=== PATIENT | female | born 1995 | race Caucasian/White ===

== ENCOUNTER 2020-07-10 06:56 | Inpatient (IN) | payer MEDICAID ==
[2020-07-10] MEDS ORDERED: Misoprostol 50 MCG (1/2 of 100 MCG) Tab VAG ONE ×2 (07:07→12:00)
[2020-07-10] MEDS ORDERED: Sodium Chloride 0.9% 10 ML Syringe FLUSH PRN (07:45)
[2020-07-10] MEDS ORDERED: Misoprostol 50 MCG (1/2 of 100 MCG) Tab ONE (07:57)
--- NOTE | 2020-07-10 08:05 | PCM.LDHP ---
L&D History of Present Illness - General Date of Service: 07/10/20 (induction for change in status, concern for ines mcclelland) Admit Problem/Dx: Patient Status Order with Admit Dx/Problem 07/10/20 07:45 Patient Status [ADT] Routine Admission Diagnosis/Problem Admission Diagnosis/Problem Source of Information: Patient History Limitations: Reports: No Limitations - History of Present Illness Introduction:: This 25 year old who is 40 2/7 weeks presents for induction of labor at term for concern of seizures. Mother described at yesterday's visit shiver like activity of the [place] in the evening for the past 5-6 days. I reviewed this case with DRY HOUSE WORKER and he recommened an induction for change in status Labs: HIV neg ABO O pos GBS neg Rubella immune - Related Data Allergies/Adverse Reactions: Allergies Allergy/AdvReac Type Severity Reaction Status Date / Time No Known Allergies Allergy Verified 07/10/20 07:44 Past Medical History DRY HOUSE WORKER History: Reports: : 2 Para: 1 LMP (Approximate): (GIAN 07/08/20) H&P Review of Systems - Review of Systems: Review Of Systems: See Below General: Reports: No Symptoms HEENT: Reports: No Symptoms Pulmonary: Reports: No Symptoms Cardiovascular: Reports: No Symptoms Gastrointestinal: Reports: No Symptoms Genitourinary: Reports: No Symptoms Musculoskeletal: Reports: No Symptoms Skin: Reports: No Symptoms Psychiatric: Reports: No Symptoms Neurological: Reports: No Symptoms Hematologic/Lymphatic: Reports: No Symptoms Immunologic: Reports: No Symptoms L&D Exam - Exam Exam: See Below - Vital Signs Vital Signs: Last Vital Signs Temp 95.7 F L 07/10/20 07:16 Pulse 47 L 07/10/20 07:16 Resp 14 07/10/20 07:16 BP 113/65 07/10/20 07:16 Pulse Ox 97 07/10/20 07:16 - OB Specific Contraction Intensity: Mild Movement: Active Heart Tones: Present (140) Heart Rate (FHR) Variability: Moderate (6-25 bmp) Presentation: Vertex Estimated Weight: 6-7 pounds - Camacho Score Camacho Score Cervix Position: Posterior Camacho Score Consistency: Soft Camacho Score Effacement: >80% Camacho Score Dilation: 1-2 cm Camacho Score 's Station: -1 ,0 Camacho Score Total: 8 - Exam General: Alert, Oriented HEENT: PERRLA, Conjunctiva Clear Neck: Supple Lungs: Clear to Auscultation, Normal Respiratory Effort Cardiovascular: Regular Rate, Regular Rhythm GI/Abdominal Exam: Normal Bowel Sounds, Soft Genitourinary: Normal external exam, Cervical dilitation, Enlarged uterus Back Exam: Normal Inspection, Full Range of Motion Extremities: No Pedal Edema, Normal Capillary Refill Skin: Warm, Dry, Intact Neurological: Cranial Nerves Intact, Reflexes Equal Bilateral Psychiatric: Alert, Normal Affect, Normal Mood - Patient Data Lab Results Last 24 hrs: Laboratory Results - last 24 hr 07/10/20 07/10/20 07/10/20 Range/Units 07:08 07:08 07:20 WBC 9.0 (4.5-11.0) K/uL RBC 3.91 (3.30-5.50) M/uL Hgb 12.3 (12.0-15.0) g/dL Hct 38.5 (36.0-48.0) % MCV 99 H (80-98) fL MCH 32 H (27-31) pg MCHC 32 (32-36) % Plt Count 235 (150-400) K/uL Urine Color Yellow (YELLOW) Urine Appearance Clear (CLEAR) Urine pH 7.0 (5.0-8.0) Ur Specific [place] 1.020 (1.008-1.030) Urine Protein Negative (NEGATIVE) mg/dL Urine Glucose (UA) Negative (NEGATIVE) mg/dL Urine Ketones Negative (NEGATIVE) mg/dL Urine Occult Blood Negative (NEGATIVE) Urine Nitrite Negative (NEGATIVE) Urine Bilirubin Negative (NEGATIVE) Urine Urobilinogen 0.2 (0.2-1.0) EU/dL Ur Leukocyte Esterase Trace H (NEGATIVE) Urine Opiates Screen Negative (NEGATIVE) Ur Oxycodone Screen Negative (NEGATIVE) Urine Methadone Screen Negative (NEGATIVE) Ur Propoxyphene Screen Negative (NEGATIVE) Ur Barbiturates Screen Negative (NEGATIVE) Ur Tricyclics Screen Negative (NEGATIVE) Ur Phencyclidine Scrn Negative (NEGATIVE) Ur Amphetamine Screen Negative (NEGATIVE) U Methamphetamines Scrn Negative (NEGATIVE) Urine MDMA Screen Negative (NEGATIVE) U Benzodiazepines Scrn Negative (NEGATIVE) U Cocaine Metab Screen Negative (NEGATIVE) U Marijuana (THC) Screen Negative (NEGATIVE) Result Diagrams: 07/10/20 07:20 - Problem List (1) Encounter for induction of labor SNOMED Code(s): 023628378 ICD Code: Z34.90 - ENCNTR FOR SUPRVSN OF NORMAL , UNSP, UNSP TRIMESTER Status: Acute Current Visit: Yes (2) Intrauterine SNOMED Code(s): 06981430 ICD Code: Z34.90 - ENCNTR FOR SUPRVSN OF NORMAL , UNSP, UNSP TRIMESTER Status: Acute Current Visit: Yes Problem List Initiated/Reviewed/Updated: Yes Orders Last 24hrs: Active Orders 24 hr Category Date Time Status Patient Status [ADT] Routine ADT 07/10/20 07:45 Ordered Antiembolic Devices [RC] .Routine Care 07/10/20 07:48 Ordered Communication Order [RC] ASDIRECTED Care 07/10/20 07:45 Ordered Communication Order [RC] Per Unit Routine Care 07/10/20 07:59 Ordered Communication Order [RC] Per Unit Routine Care 07/10/20 07:59 Ordered Communication Order [RC] Per Unit Routine Care 07/10/20 07:59 Ordered Heart Tones [RC] PER UNIT ROUTINE Care 07/10/20 07:45 Ordered Non Stress Test [RC] Click to Edit Care 07/10/20 07:45 Ordered Nitrous Oxide Delivery [RC] ASDIRECTED Care 07/10/20 07:59 Ordered Notify Provider Vital Signs [RC] PRN Care 07/10/20 07:45 Ordered Notify Provider [RC] PRN Care 07/10/20 07:45 Ordered Oxygen Therapy [RC] ASDIRECTED Care 07/10/20 07:59 Ordered Pulse Oximetry [RC] ASDIRECTED Care 07/10/20 07:59 Ordered VTE/DVT Education [RC] Click to Edit Care 07/10/20 07:48 Ordered Verify Patient Consent Obtain [RC] ASDIRECTED Care 07/10/20 07:59 Ordered Vital Signs [RC] PER UNIT ROUTINE Care 07/10/20 07:45 Ordered Vital Signs [RC] PER UNIT ROUTINE Care 07/10/20 07:59 Ordered Regular Diet [DIET] Diet 07/10/20 Dinner Ordered BPP w NST [US] Routine Exams 07/10/20 07:08 Ordered CORONAVIRUS COVID-19, MAURILIO Stat Lab 07/10/20 07:08 Ordered Sodium Chloride 0.9% [Saline Flush] Med 07/10/20 07:45 Ordered 10 ml FLUSH ASDIRECTED PRN DVT/VTE Prophylaxis Reflex [OM.PC] Routine Oth 07/10/20 07:45 Ordered Saline Lock Insert [OM.PC] Routine Oth 07/10/20 07:45 Ordered Resuscitation Status Routine Resus Stat 07/10/20 07:45 Ordered Medication Orders Sodium Chloride (Saline Flush) 10 ml FLUSH ASDIRECTED PRN PRN Reason: Keep Vein Open Assessment/Plan Comment:: 07/10/20 25 year old 40 2/7 weeks with concern for wellbeing, Mother has been describing shivers in the evening for the past 5-6 nights Plan induction BPP 8/8, reactive NST this morning hgb 12.3, PLT 235 Miso 50 mcg vaginal placed at 0800 Plan for vaginal delivery She would like Nitrous for pain management if Covid negative
--- NOTE | 2020-07-10 10:03 | US ---
BPP w NST INDICATION: induction. quivering/? seizures COMPARISON: None FINDINGS: Single live IUP in: Cephalic position. heart rate: 161 BPM. Biophysical profile score: 8/8. LATOYA: 12.3 cm. IMPRESSION: Normal biophysical profile score of 8/8.
--- NOTE | 2020-07-10 12:17 | PCM.PNLD ---
Labor Progress Note - VS & Meds Vital Signs: Last Vital Signs Temp 95.7 F L 07/10/20 07:16 Pulse 62 07/10/20 07:58 Resp 14 07/10/20 08:35 BP 102/69 07/10/20 08:45 Pulse Ox 97 07/10/20 07:16 Active Medications: Current Medications Sodium Chloride (Saline Flush) 10 ml FLUSH ASDIRECTED PRN PRN Reason: Keep Vein Open Discontinued Medications Oxytocin/Sodium Chloride (Pitocin In Ns 20 Units/1,000 Ml) 20 unit in 1,000 mls @ 500 mls/hr IV ASDIRECTED ONE; Protocol Stop: 07/10/20 11:57 Misoprostol (Cytotec) 50 mcg VAG ONETIME ONE Stop: 07/10/20 07:08 Last Admin: 07/10/20 07:53 Dose: 50 mcg Documented by: Misoprostol (Cytotec) Confirm Administered Dose 50 mcg .ROUTE .STK-MED ONE Stop: 07/10/20 07:58 Last Admin: 07/10/20 08:49 Dose: Not Given Documented by: Misoprostol (Cytotec) 50 mcg VAG ONETIME ONE Stop: 07/10/20 12:01 - Uterine Contractions Uterine Monitoring Mode: None in Use Contraction Frequency (min): 1.5-2.5 Contraction Duration (sec): 50-60 Contraction Intensity: Mild Uterine Resting Tone: Soft - Monitoring Monitor Mode: Doppler/Auscultation Heart Rate (FHR) Baseline: 140 Heart Rate (FHR) Variability: Moderate (6-25 bmp) Accelerations: Present, 15x15 Decelerations: Variable Strip Review: Category II - Vaginal Exam Dilation (cm): 3-4 Effacement (Percent): 80 Station: 1 Cervical Position: Anterior Sterile Vaginal Exam Performed By: Kamille Martínez Vaginal Exam Comment: nice change since this morning - Labor Progress (Free Text) Labor Progress: plan for vaginal delivery nitrous for pain management
[2020-07-10] MEDS ORDERED: fentaNYL 100 MCG/2 ML SDV ONE (14:49)
[2020-07-10] MEDS ORDERED: fentaNYL 100 MCG/2 ML SDV IVPUSH ONE (15:00)
[2020-07-10] MEDS ORDERED: Lidocaine 1% 50 ML MDV ONE (16:15)
[2020-07-10] MEDS ORDERED: Lidocaine 1% 50 ML MDV INJECT ONE (16:35)
[2020-07-10] MEDS ORDERED: Lanolin 100% Cream 40 GM Tube TOP ONE (16:37)
[2020-07-10] MEDS ORDERED: Benzocaine 20% Top Spray 56 GM Bottle TOP ONE (16:37)
[2020-07-10] MEDS ORDERED: Acetaminophen 325 MG Tab, 50 Tab Bulk Bottle PO PRN (16:37)
[2020-07-10] MEDS ORDERED: Witch Hazel Medicated Pads 100/Jar TOP ONE (16:37)
[2020-07-10] MEDS ORDERED: Ibuprofen 200 MG Tab, 24 Tab Bulk Bottle PO PRN (16:37)
[2020-07-10] MEDS ORDERED: Hydrocortisone 2.5% Crm 30 GM Tube TOP PRN (16:37)
--- NOTE | 2020-07-10 16:50 | PCM.DEL ---
L & D Note - General Info Date of Service: 07/10/20 Mother's Due Date: 07/08/20 - Delivery Note Labor: Spontaneous Cervical Ripening Method: Misoprostil Delivery Outcome: Livebirth Delivery Method: Spontaneous Vaginal Delivery-Single Infant Delivery Mode: Spontaneous Presentation: Vertex Nuchal Cord: None Anesthesia Type: Nitrous Oxide Anesthetic: Lidocaine (Xylocaine) 1% Plain Local Anesthetic Volume: 3cc Amniotic Fluid Description: Clear Episiotomy Type: None Laceration: 1st Degree, Perineal Suture type: Vicryl Suture size: 3-0 Placenta: Intact, Spontaneous Cord: 3 Vessels Estimated Blood Loss: 200 Resuscitation Needed: No [place]: Bulb Syringe, Stimulated, Warmed, [place]ks Used Provider: Kamille Martínez Score 1 min: 8 (color) Score 5 min: 9 (color) Second Stage Interventions: Reports: Pushing Effectively, Pushing, Pulls Own Legs Back Delivery Comments (Free Text/Narrative):: 07/10/20 This 25 year old G2 now P2 who is 40 2/7 weeks gestation delivered a female via at 1610 in EZIO position. The was delivered onto her chest and was screaming. Delayed cord clamping and active management of the third stage were used. Baby was dried and stimulated. Apgars of 8 & 9 all for color. Three vessel cord. The placenta was expressed intact spontaneously. Mother had a tiny perineal tear that was repaired with two 3-0 Vicryl stitches. 1% lidocaine was used as a local agent. No other lacerations were found. EBL 200cc Mother and baby to post instable condition weight7-6pounds First stage 2197-4601 Second stage 4526-3211 Third stage 5653-5296 Beautiful delivery Induction Criteria - Camacho Score Camacho Score Dilation: 1-2 cm Camacho Score Effacement: >80% Camacho Score 's Station: -1 ,0 Camacho Score Consistency: Soft Camacho Score Cervix Position: Posterior Camacho Score Total: 8 Camacho Score Presenting Part: Reports: Cephalic - Induction Gestational Age >/= 39 wks: Yes Estimated Pelvis: Reports: Adequate Reassuring Monitoring Strip: Yes Absence of Tachy Systole: Yes - General Info Date of Service: 07/10/20 Admission Dx/Problem (Free Text): Patient Status Order with Admit Dx/Problem 07/10/20 07:45 Patient Status [ADT] Routine Admission Diagnosis/Problem Admission Diagnosis/Problem Functional Status: Reports: Pain Controlled - Review of Systems General: Reports: No Symptoms HEENT: Reports: No Symptoms Pulmonary: Reports: No Symptoms Cardiovascular: Reports: No Symptoms Gastrointestinal: Reports: No Symptoms Genitourinary: Reports: No Symptoms Musculoskeletal: Reports: No Symptoms Skin: Reports: No Symptoms Neurological: Reports: No Symptoms Psychiatric: Reports: No Symptoms - Patient Data Vitals - Most Recent: Last Vital Signs Temp 97.4 F 07/10/20 13:05 Pulse 68 07/10/20 13:05 Resp 16 07/10/20 13:05 BP 105/58 L 07/10/20 13:05 Pulse Ox 97 07/10/20 07:16 Weight - Most Recent: 160 lb 15.987 oz Lab Results Last 24 Hours: Laboratory Results - last 24 hr 07/10/20 07/10/20 07/10/20 Range/Units 07:08 07:08 07:20 WBC 9.0 (4.5-11.0) K/uL RBC 3.91 (3.30-5.50) M/uL Hgb 12.3 (12.0-15.0) g/dL Hct 38.5 (36.0-48.0) % MCV 99 H (80-98) fL MCH 32 H (27-31) pg MCHC 32 (32-36) % Plt Count 235 (150-400) K/uL Urine Color Yellow (YELLOW) Urine Appearance Clear (CLEAR) Urine pH 7.0 (5.0-8.0) Ur Specific [place] 1.020 (1.008-1.030) Urine Protein Negative (NEGATIVE) mg/dL Urine Glucose (UA) Negative (NEGATIVE) mg/dL Urine Ketones Negative (NEGATIVE) mg/dL Urine Occult Blood Negative (NEGATIVE) Urine Nitrite Negative (NEGATIVE) Urine Bilirubin Negative (NEGATIVE) Urine Urobilinogen 0.2 (0.2-1.0) EU/dL Ur Leukocyte Esterase Trace H (NEGATIVE) Urine Opiates Screen Negative (NEGATIVE) Ur Oxycodone Screen Negative (NEGATIVE) Urine Methadone Screen Negative (NEGATIVE) Ur Propoxyphene Screen Negative (NEGATIVE) Ur Barbiturates Screen Negative (NEGATIVE) Ur Tricyclics Screen Negative (NEGATIVE) Ur Phencyclidine Scrn Negative (NEGATIVE) Ur Amphetamine Screen Negative (NEGATIVE) U Methamphetamines Scrn Negative (NEGATIVE) Urine MDMA Screen Negative (NEGATIVE) U Benzodiazepines Scrn Negative (NEGATIVE) U Cocaine Metab Screen Negative (NEGATIVE) U Marijuana (THC) Screen Negative (NEGATIVE) SARS CoV-2 RNA Rapid MAURILIO 07/10/20 Range/Units 08:09 WBC (4.5-11.0) K/uL RBC (3.30-5.50) M/uL Hgb (12.0-15.0) g/dL Hct (36.0-48.0) % MCV (80-98) fL MCH (27-31) pg MCHC (32-36) % Plt Count (150-400) K/uL Urine Color (YELLOW) Urine Appearance (CLEAR) Urine pH (5.0-8.0) Ur Specific [place] (1.008-1.030) Urine Protein (NEGATIVE) mg/dL Urine Glucose (UA) (NEGATIVE) mg/dL Urine Ketones (NEGATIVE) mg/dL Urine Occult Blood (NEGATIVE) Urine Nitrite (NEGATIVE) Urine Bilirubin (NEGATIVE) Urine Urobilinogen (0.2-1.0) EU/dL Ur Leukocyte Esterase (NEGATIVE) Urine Opiates Screen (NEGATIVE) Ur Oxycodone Screen (NEGATIVE) Urine Methadone Screen (NEGATIVE) Ur Propoxyphene Screen (NEGATIVE) Ur Barbiturates Screen (NEGATIVE) Ur Tricyclics Screen (NEGATIVE) Ur Phencyclidine Scrn (NEGATIVE) Ur Amphetamine Screen (NEGATIVE) U Methamphetamines Scrn (NEGATIVE) Urine MDMA Screen (NEGATIVE) U Benzodiazepines Scrn (NEGATIVE) U Cocaine Metab Screen (NEGATIVE) U Marijuana (THC) Screen (NEGATIVE) SARS CoV-2 RNA Rapid MAURILIO Negative Med Orders - Current: Current Medications Acetaminophen (Tylenol Bulk Bottle) 0 mg PO Q4H PRN PRN Reason: Pain Benzocaine (Cjpi-I-Ukgiioj 20% [place]) 0 gm TOP Q4H ONE Stop: 07/10/20 16:38 Emollient Ointment (Lansinoh Hpa) 1 gm TOP ASDIRECTED ONE Stop: 07/10/20 16:38 Hydrocortisone (Proctozone-Hc 2.5% Crm) 1 gm TOP ASDIRECTED PRN PRN Reason: Itching Ibuprofen (Motrin Bulk Bottle) 600 mg PO Q6H PRN PRN Reason: Pain Lidocaine HCl (Xylocaine 1%) 5 ml INJECT ONETIME ONE Stop: 07/10/20 16:36 Sodium Chloride (Saline Flush) 10 ml FLUSH ASDIRECTED PRN PRN Reason: Keep Vein Open [place] (Tucks) 1 pad TOP ASDIRECTED ONE Stop: 07/10/20 16:38 Discontinued Medications Fentanyl (Sublimaze) 50 mcg IVPUSH ONETIME ONE Stop: 07/10/20 15:01 Last Admin: 07/10/20 14:58 Dose: 50 mcg Documented by: Fentanyl (Sublimaze) Confirm Administered Dose 100 mcg .ROUTE .STK-MED ONE Stop: 07/10/20 14:50 Last Admin: 07/10/20 14:58 Dose: Not Given Documented by: Oxytocin/Sodium Chloride (Pitocin In Ns 20 Units/1,000 Ml) 20 unit in 1,000 mls @ 500 mls/hr IV ASDIRECTED ONE; Protocol Stop: 07/10/20 11:57 Last Admin: 07/10/20 16:34 Dose: 500 mls/hr, 500 mls/hr Documented by: Lidocaine HCl (Xylocaine 1%) Confirm Administered Dose 50 ml .ROUTE .STK-MED ONE Stop: 07/10/20 16:16 Last Admin: 07/10/20 16:34 Dose: 50 ml Documented by: Misoprostol (Cytotec) 50 mcg VAG ONETIME ONE Stop: 07/10/20 07:08 Last Admin: 07/10/20 07:53 Dose: 50 mcg Documented by: Misoprostol (Cytotec) Confirm Administered Dose 50 mcg .ROUTE .STK-MED ONE Stop: 07/10/20 07:58 Last Admin: 07/10/20 08:49 Dose: Not Given Documented by: Misoprostol (Cytotec) 50 mcg VAG ONETIME ONE Stop: 07/10/20 12:01 Last Admin: 07/10/20 12:46 Dose: Not Given Documented by: - Exam General: Alert, Oriented HEENT: Pupils Equal, Pupils Reactive Neck: Supple Lungs: Normal Respiratory Effort Cardiovascular: Regular Rate, Regular Rhythm GI/Abdominal Exam: Normal Bowel Sounds, Soft (Female) Exam: Cervical Dilatation, Enlarged Uterus, Vaginal Bleeding Back Exam: Normal Inspection Extremities: No Pedal Edema, Normal Capillary Refill Skin: Warm, Dry Neurological: No New Focal Deficit Psy/Mental Status: Alert, Normal Affect, Normal Mood - Problem List & Annotations (1) Encounter for induction of labor SNOMED Code(s): 193258390 Code(s): Z34.90 - ENCNTR FOR SUPRVSN OF NORMAL , UNSP, UNSP TRIMESTER Status: Acute Current Visit: Yes (2) Intrauterine SNOMED Code(s): 96127695 Code(s): Z34.90 - ENCNTR FOR SUPRVSN OF NORMAL , UNSP, UNSP TRIMESTER Status: Acute Current Visit: Yes (3) Vaginal delivery SNOMED Code(s): 327798623 Code(s): O80 - ENCOUNTER FOR FULL-TERM UNCOMPLICATED DELIVERY Status: Acute Current Visit: Yes (4) (infant) SNOMED Code(s): 824619800 Code(s): Z78.9 - OTHER SPECIFIED HEALTH STATUS Status: Acute Current Visit: Yes (5) Active labor SNOMED Code(s): 197913899 Code(s): KXY1049 - Status: Acute Current Visit: Yes - Problem List Review Problem List Initiated/Reviewed/Updated: Yes - My Orders Last 24 Hours: My Active Orders 07/10/20 07:45 Notify Provider Vital Signs [RC] PRN Notify Provider [RC] PRN Sodium Chloride 0.9% [Saline Flush] 10 ml FLUSH ASDIRECTED PRN DVT/VTE Prophylaxis Reflex [OM.PC] Routine Saline Lock Insert [OM.PC] Routine Resuscitation Status Routine 07/10/20 07:48 Antiembolic Devices [RC] .Routine VTE/DVT Education [RC] Click to Edit 07/10/20 07:59 Nitrous Oxide Delivery [RC] ASDIRECTED Oxygen Therapy [RC] ASDIRECTED Pulse Oximetry [RC] ASDIRECTED Vital Signs [RC] PER UNIT ROUTINE 07/10/20 16:35 Lidocaine 1% [Xylocaine 1%] 5 ml INJECT ONETIME ONE 07/10/20 16:37 May Shower [RC] ASDIRECTED Up ad Meme [RC] ASDIRECTED Acetaminophen [Tylenol Bulk Bottle] See Dose Instructions PO Q4H PRN Benzocaine [Rbev-I-Hkuziuv 20% [place]] See Dose Instructions TOP Q4H ONE Hydrocortisone [Proctozone-HC 2.5% Crm] 1 gm TOP ASDIRECTED PRN Ibuprofen [Motrin Bulk Bottle] 600 mg PO Q6H PRN Lanolin [Lansinoh HPA] 1 gm TOP ASDIRECTED ONE witch Reg [Tucks] 1 pad TOP ASDIRECTED ONE Assess Lochia [WOMSER] Per Unit Routine Assess Uterine Involution [WOMSER] Per Unit Routine 07/10/20 16:38 Patient Status [ADT] Routine Vital Signs [RC] PFP 07/10/20 16:39 Ice Therapy [OM.PC] Per Unit Routine Perineal Care [OM.PC] Per Unit Routine Peripheral IV Discontinue [OM.PC] Routine Sitz Bath [OM.PC] Per Unit Routine 07/10/20 Dinner Regular Diet [DIET] 07/11/20 05:11 CBC WITH AUTO DIFF [HEME] AM - Assessment Assessment:: 07/10/20 25 year old induction with and no complications Female , - Plan Plan:: 07/10/20 25 year old 40 2/7 weeks with concern for wellbeing, Mother has been describing shivers in the evening for the past 5-6 nights Plan induction BPP 8/8, reactive NST this morning hgb 12.3, PLT 235 Miso 50 mcg vaginal placed at 0800 Plan for vaginal delivery She would like Nitrous for pain management if Covid negative routine cares 24-48 hour stay support
--- NOTE | 2020-07-11 09:49 | PCM.PNPP ---
- General Info Date of Service: 07/11/20 Functional Status: Reports: Pain Controlled - Review of Systems General: Reports: No Symptoms HEENT: Reports: No Symptoms Pulmonary: Reports: No Symptoms Cardiovascular: Reports: No Symptoms Gastrointestinal: Reports: No Symptoms Genitourinary: Reports: No Symptoms Musculoskeletal: Reports: No Symptoms Skin: Reports: No Symptoms Neurological: Reports: No Symptoms Psychiatric: Reports: No Symptoms - General Info Date of Service: 07/11/20 - Patient Data Vital Signs - Most Recent: Last Vital Signs Temp 35.8 C L 07/11/20 09:12 Pulse 81 07/11/20 09:12 Resp 16 07/11/20 04:03 BP 113/70 07/11/20 09:12 Pulse Ox 97 07/11/20 09:12 Weight - Most Recent: 73.028 kg I&O - Last 24 Hours: Intake & Output 07/10/20 07/11/20 07/11/20 22:59 06:59 14:59 Intake Total 1000 Balance 1000 Lab Results - Last 24 Hours: Laboratory Results - last 24 hr 07/11/20 Range/Units 05:11 WBC 13.5 H (4.5-11.0) K/uL RBC 3.53 (3.30-5.50) M/uL Hgb 11.2 L (12.0-15.0) g/dL Hct 34.6 L (36.0-48.0) % MCV 98 (80-98) fL MCH 32 H (27-31) pg MCHC 32 (32-36) % Plt Count 199 (150-400) K/uL Neut % (Auto) 75 H (36-66) % Lymph % (Auto) 15 L (24-44) % [place] % (Auto) 9 H (2-6) % Eos % (Auto) 1 L (2-4) % Baso % (Auto) 0 (0-1) % Med Orders - Current: Current Medications Acetaminophen (Tylenol Bulk Bottle) 0 mg PO Q4H PRN PRN Reason: Pain Last Admin: 07/10/20 17:31 Dose: 650 mg Documented by: Hydrocortisone (Proctozone-Hc 2.5% Crm) 0 gm TOP ASDIRECTED PRN PRN Reason: Itching Ibuprofen (Motrin Bulk Bottle) 600 mg PO Q6H PRN PRN Reason: Pain Last Admin: 07/10/20 17:29 Dose: 600 mg Documented by: Sodium Chloride (Saline Flush) 10 ml FLUSH ASDIRECTED PRN PRN Reason: Keep Vein Open Discontinued Medications Benzocaine (Biyl-A-Wjxiezl 20% [place]) 0 gm TOP Q4H ONE Stop: 07/10/20 16:38 Last Admin: 07/10/20 17:31 Dose: 1 applic Documented by: Emollient Ointment (Lansinoh Hpa) 0 gm TOP ASDIRECTED ONE Stop: 07/10/20 16:38 Last Admin: 07/10/20 17:30 Dose: 1 applic Documented by: Fentanyl (Sublimaze) 50 mcg IVPUSH ONETIME ONE Stop: 07/10/20 15:01 Last Admin: 07/10/20 14:58 Dose: 50 mcg Documented by: Fentanyl (Sublimaze) Confirm Administered Dose 100 mcg .ROUTE .STK-MED ONE Stop: 07/10/20 14:50 Last Admin: 07/10/20 14:58 Dose: Not Given Documented by: Oxytocin/Sodium Chloride (Pitocin In Ns 20 Units/1,000 Ml) 20 unit in 1,000 mls @ 500 mls/hr IV ASDIRECTED ONE; Protocol Stop: 07/10/20 11:57 Last Admin: 07/10/20 16:34 Dose: 500 mls/hr, 500 mls/hr Documented by: Lidocaine HCl (Xylocaine 1%) Confirm Administered Dose 50 ml .ROUTE .STK-MED ONE Stop: 07/10/20 16:16 Last Admin: 07/10/20 16:34 Dose: 50 ml Documented by: Lidocaine HCl (Xylocaine 1%) 5 ml INJECT ONETIME ONE Stop: 07/10/20 16:36 Last Admin: 07/10/20 17:15 Dose: Not Given Documented by: Misoprostol (Cytotec) 50 mcg VAG ONETIME ONE Stop: 07/10/20 07:08 Last Admin: 07/10/20 07:53 Dose: 50 mcg Documented by: Misoprostol (Cytotec) Confirm Administered Dose 50 mcg .ROUTE .STK-MED ONE Stop: 07/10/20 07:58 Last Admin: 07/10/20 08:49 Dose: Not Given Documented by: Misoprostol (Cytotec) 50 mcg VAG ONETIME ONE Stop: 07/10/20 12:01 Last Admin: 07/10/20 12:46 Dose: Not Given Documented by: [place] Burtonlesia) 1 pad TOP ASDIRECTED ONE Stop: 07/10/20 16:38 Last Admin: 07/10/20 17:30 Dose: 1 applic Documented by: - Interaction Disposition, : in Room with Family Interaction: Holding Feeding: Breastfed Infant; Nursed Well Support Person: - Recovery Exam Fundal Tone: Firm Fundal Level: 1 Fingerbreadths Below Umbilicus Fundal Placement: Midline Lochia Amount: Moderate Lochia Color: Rubra/Red Perineum Description: Edematous Other Perinuem Description: stitching Episiotomy/Laceration: Approximated Bladder Status: Voiding Urinary Elimination: Voided - Exam General: Alert, Oriented HEENT: Pupils Equal, Pupils Reactive, Mucous Membr. Moist/[place] Neck: Supple Lungs: Clear to Auscultation, Normal Respiratory Effort Cardiovascular: Regular Rate, Regular Rhythm GI/Abdominal Exam: Normal Bowel Sounds, Soft, Non-Tender, No Organomegaly, No Distention, No Mass, Pelvis Stable Extremities: Normal Inspection, Normal Range of Motion, Non-Tender, No Pedal Edema, Normal Capillary Refill Skin: Warm, Dry, Intact Neurological: No New Focal Deficit Psy/Mental Status: Alert, Normal Affect, Normal Mood - Problem List & Annotations (1) Active labor SNOMED Code(s): 254183206 Code(s): XES2444 - Status: Acute Current Visit: Yes (2) () SNOMED Code(s): 589647054 Code(s): Z78.9 - OTHER SPECIFIED HEALTH STATUS Status: Acute Current Vis it: Yes (3) Encounter for induction of labor SNOMED Code(s): 484182382 Code(s): Z34.90 - ENCNTR FOR SUPRVSN OF NORMAL , UNSP, UNSP TRIMESTER Status: Acute Current Visit: Yes (4) Intrauterine SNOMED Code(s): 03524186 Code(s): Z34.90 - ENCNTR FOR SUPRVSN OF NORMAL , UNSP, UNSP TRIMESTER Status: Acute Current Visit: Yes (5) Vaginal delivery SNOMED Code(s): 442093365 Code(s): O80 - ENCOUNTER FOR FULL-TERM UNCOMPLICATED DELIVERY Status: Acute Current Visit: Yes (6) Vaginal laceration SNOMED Code(s): 298061298 Code(s): S31.41XA - LACERATION W/O FOREIGN BODY OF VAGINA AND VULVA, INIT ENCNTR Status: Acute Current Visit: Yes Qualifiers: Perineal laceration degree: laceration of unspecified degree - Problem List Review Problem List Initiated/Reviewed/Updated: Yes - Assessment Assessment:: 07/10/20 25 year old induction with and no complications Female , 07/11/20 PP day 1, no complications Pain controlled AVSS Bleeding light and FF going well - Plan Plan:: 07/10/20 25 year old 40 2/7 weeks with concern for wellbeing, Mother has been describing shivers in the evening for the past 5-6 nights Plan induction BPP 8/8, reactive NST this morning hgb 12.3, PLT 235 Miso 50 mcg vaginal placed at 0800 Plan for vaginal delivery She would like Nitrous for pain management if Covid negative routine cares 24-48 hour stay support 07/11/20 Routine pp cares and support Discharge home today after 24 hours if stable 6 week pp check
[2020-07-11] MEDS ORDERED: Docusate Sodium 100 MG Cap PO PRN (12:28)
== END 2020-07-11 18:19 | disposition home or self-care (01) | DRG 807 ==
LOC: JP.OB 06:56 → OBSVTOIN 16:10 → JP.MS 22:36
PROVIDERS: ADMIT Nurse Practitioner Family; ATTEND Nurse Practitioner Family
PROC: 10E0XZZ Delivery of Products of Conception, External Approach (ICD-10-PCS; principal; 2020-07-10)
PROC: 0HQ9XZZ Repair Perineum Skin, External Approach (ICD-10-PCS; 2020-07-10)
DX: O70.0 First degree perineal laceration during delivery (principal); Z37.0 Single live birth; Z3A.40 40 weeks gestation of pregnancy; Z20.828 Contact with and (suspected) exposure to other viral communicable diseases
CPT/HCPCS: 36415; 59409; 76818; 76818-26; 80305-QW; 81003; 85025; 85027; A9270-GY; J2001; J2590; J3010; U0002

== ENCOUNTER 2022-03-03 07:22 | Inpatient (IN) | payer MEDICAID ==
[2022-03-03] MEDS ORDERED: Ondansetron 4 MG/2 ML SDV IV PRN (08:13)
[2022-03-03] MEDS ORDERED: Sodium Chloride 0.9% 10 ML Syringe FLUSH PRN (08:13)
[2022-03-03] MEDS ORDERED: fentaNYL 100 MCG/2 ML SDV IVPUSH PRN (08:13)
[2022-03-03] MEDS ORDERED: Lactated Ringers 1,000 ML IV SCH (08:45)
[2022-03-03 09:16] LABS: CORONAVIRUS COVID-19 NAA NEGATIVE (NEGATIVE)
[2022-03-03] MEDS ORDERED: Ketorolac 30 MG/ML SDV IM ONE (14:20)
[2022-03-03] MEDS ORDERED: Ketorolac 30 MG/ML SDV ONE (14:21)
[2022-03-03] MEDS ORDERED: Lanolin 100% Cream 40 GM Tube TOP PRN (17:13)
[2022-03-03] MEDS ORDERED: Acetaminophen 325 MG Tab, 50 Tab Bulk Bottle PO PRN (17:17)
[2022-03-03] MEDS ORDERED: Ibuprofen 200 MG Tab, 24 Tab Bulk Bottle PO PRN (17:19)
[2022-03-03] MEDS: Witch Hazel Medicated Pads 100/Jar TOP PRN (17:30)
[2022-03-04] MEDS: Witch Hazel Medicated Pads 100/Jar TOP PRN (17:35)
== END 2022-03-04 17:45 | disposition home or self-care (01) | DRG 807 ==
LOC: JP.OB 07:22 → OBSVTOIN 14:15 → JP.MS 16:14
PROVIDERS: ADMIT Obstetrics & Gynecology; ATTEND Obstetrics & Gynecology
PROC: 4A1HXCZ Monitoring of Products of Conception, Cardiac Rate, External Approach (ICD-10-PCS; principal; 2022-03-03)
PROC: 10E0XZZ Delivery of Products of Conception, External Approach (ICD-10-PCS; 2022-03-03)
PROC: 10907ZC Drainage of Amniotic Fluid, Therapeutic from Products of Conception, Via Natural or Artificial Opening (ICD-10-PCS; 2022-03-03)
PROC: 3E033VJ Introduction of Other Hormone into Peripheral Vein, Percutaneous Approach (ICD-10-PCS; 2022-03-03)
PROC: 0HQ9XZZ Repair Perineum Skin, External Approach (ICD-10-PCS; 2022-03-03)
DX: O48.0 Post-term pregnancy (principal); Z37.0 Single live birth; Z3A.40 40 weeks gestation of pregnancy; O77.0 Labor and delivery complicated by meconium in amniotic fluid; O69.81X0 Labor and delivery complicated by cord around neck, without compression, not applicable or unspecified; O70.0 First degree perineal laceration during delivery; Z20.822 Contact with and (suspected) exposure to COVID-19; O76 Abnormality in fetal heart rate and rhythm complicating labor and delivery
CPT/HCPCS: 0241U; 36415; 80305-QW; 81001; 85025; A9270-GY; J1885; J2405; J2590; J7120